=== PATIENT | female | born 1975 ===

== ENCOUNTER 2016-10-24 06:59 | Day surgery (SDC) | payer OTHER ==
[2016-09-23 21:34] VITALS: BMI 31.2
[2016-10-24] MEDS ORDERED: Propofol 10 mg/ml Inj (20 ML) ONE ×2 (08:13→08:14)
[2016-10-24] MEDS ORDERED: Lactated Ringer's 1,000 ML IV SCH (08:15)
--- NOTE | 2016-10-24 08:28 | CP.SDSHP ---
Same Day Surgery H & P - History Proposed Procedure: COLONSCOPY Pre-Op Diagnosis: SEE NOTES - Previous Medical/Surgical History Cardiac: Hypertension Endocrine/Metabolic: Diabetes Neuro: Backaches Pain: 4.Moderate Pain - Allergies Allergies: Allergies SEAFOOD Allergy (Intermediate, Uncoded 10/24/16 07:31) RASH - Physical Exam General Appearance: N Vital Signs: Vital Signs 10/24/16 07:10 Temperature 98.4 F Pulse Rate 80 Respiratory 20 Rate Blood Pressure 125/97 H O2 Sat by Pulse 99 Oximetry Mental Status: Alert & Oriented x3 Neuro: WNL Heart: Other Lungs: WNL GI: WNL - {Optional Preform as Required} Breast: WNL Abdomen: Other Rectal: Other Integument: WNL : WNL Ortho: Other ENT: WNL - Impression Pt. Evaluated Today:Candidate for Anesthesia & Procedure: Yes - Date & Time Time: 08:28 Short Stay Discharge - Short Stay Discharge Admitting Diagnosis/Reason for Visit: RECTAL BLEEDING Disposition: HOME/ ROUTINE
[2016-10-24 08:29] VITALS: O2SAT 100
[2016-10-24] MEDS ORDERED: Belladonna-Phenobarbital PO STA (08:29)
[2016-10-24] MEDS ORDERED: Lactated Ringer's 500 ML IV ONE ×2 (08:35)
[2016-10-24] MEDS ORDERED: Lidocaine Hydrochloride 5 ML INJ ONE (08:48)
[2016-10-24 09:01] VITALS: RESP 16
[2016-10-24 09:21] VITALS: TEMP 98
[2016-10-24 09:43] VITALS: BP 115/65; PULSE 75
== END 2016-10-24 09:40 | disposition home or self-care (01) ==
LOC: C.ENDO 06:59
PROVIDERS: ATTEND Specialist
DX: K60.2 Anal fissure, unspecified (principal); K52.9 Noninfective gastroenteritis and colitis, unspecified; I10 Essential (primary) hypertension; E11.9 Type 2 diabetes mellitus without complications; K64.8 Other hemorrhoids
CPT/HCPCS: 45380; 82948; 84703; 88305; J2704; J7120

== ENCOUNTER 2016-12-21 22:07 | Emergency (ER) | payer OTHER ==
[2016-12-21 22:08] VITALS: BMI 31.2
[2016-12-21] MEDS ORDERED: Sodium Chloride 0.9% 1,000 ML IV ONE (23:16)
--- NOTE | 2016-12-21 23:22 | C.PDOC ---
History Of Present Illness 41 year old patient, with a past medical history of diabetes, asthma, and gastritis, presents to the ED complaining of chest pain for the past 3 days. Patient also complains of a subjective fever, cough and sore throat. Patient denies vomiting, diarrhea, shortness of breath, palpitations, or nasal congestion. Time Seen by Provider: 12/21/16 23:12 Chief Complaint (Nursing): Chest Pain History Per: Patient History/Exam Limitations: no limitations Onset/Duration Of Symptoms: Days (3) Current Symptoms Are (Timing): Still Present Context: Other Severity: Moderate Pain Scale Rating Of: 4 Quality: "Pain" Exacerbating Factors: None Alleviating Factors: None Recent travel outside of the [place]: No Past Medical History Reviewed: Historical Data, Nursing Documentation, Vital Signs Vital Signs: Last Vital Signs Temp 99 F 12/21/16 22:36 Pulse 89 12/21/16 22:36 Resp 14 12/21/16 22:36 BP 112/76 12/21/16 22:36 Pulse Ox 97 12/22/16 00:08 - Medical History PMH: Anemia, Asthma, Back Problems, Gastritis Surgical History: Endoscopy - [facility] Procedures CLOSED ENDOSCOPIC BIOPSY OF LARGE INTESTINE (10/20/14) ESOPHAGOGASTRODUODENOSCOPY [EGD] W/CLOSED BIOPSY (02/09/15) Family History: States: Unknown Family Hx, Diabetes - Social History Hx Tobacco Use: No Hx Alcohol Use: Yes Hx Substance Use: No - Immunization History Hx Tetanus Toxoid Vaccination: No Hx Influenza Vaccination: No Hx Pneumococcal Vaccination: No Review Of Systems Except As Marked, All Systems Reviewed And Found Negative. Constitutional: Positive for: Fever ENT: Positive for: Throat Pain. Negative for: Nose Congestion Cardiovascular: Positive for: Chest Pain. Negative for: Palpitations Respiratory: Positive for: Cough. Negative for: Shortness of Breath Gastrointestinal: Negative for: Nausea, Vomiting Physical Exam - Physical Exam Appears: Non-toxic, No Acute Distress Skin: Warm, Dry Head: Atraumatic, Normacephalic Eye(s): bilateral: Normal Inspection Ear(s): Bilateral: Normal Nose: Normal Oral Mucosa: Moist Throat: Erythema, No Exudate Neck: Normal ROM, Supple Chest: Symmetrical Cardiovascular: Rhythm Regular Respiratory: Normal Breath Sounds, No Rales, No Rhonchi, No Wheezing Gastrointestinal/Abdominal: Soft, No Tenderness Back: Normal Inspection Extremity: Normal ROM Neurological/Psych: Oriented x3, Normal Motor, Normal Sensation Gait: Steady ED Course And Treatment - Laboratory Results Result Diagrams: 12/21/16 23:50 12/21/16 23:50 O2 Sat by Pulse Oximetry: 97 (room air) Pulse Ox Interpretation: Normal Medical Decision Making Medical Decision Making: atypical cp - r/o acs, vs viral syndrome, r/o pna, perc neg Plan: * Labs * EKG * Chest x-ray * Tylenol * IV fluids Progress: ekg sinus tach [address] t wave changes normal intervals 1240: pt reassessed. texting on phone, smiling ambulating around er. cxr neg as read by me. Disposition - Disposition Disposition: HOME/ ROUTINE Disposition Time: 00:41 Condition: STABLE Additional Instructions: please follow up with your doctor. return to er with worsening symptoms or concerns. Prescriptions: Naproxen 500 mg PO BID PRN #14 tab PRN Reason: Pain, Mild (1-3) Instructions: Chest Pain (ED), Acute Bronchitis (ED) - Clinical Impression Clinical Impression: Chest pain - Scribe Statement The provider has reviewed the documentation as recorded by the Scribe Mercedez Enciso Provider Attestation: All medical record entries made by the Scribe were at my direction and personally dictated by me. I have reviewed the chart and agree that the record accurately reflects my personal performance of the history, physical exam, medical decision making, and the department course for this patient. I have also personally directed, reviewed, and agree with the discharge instructions and disposition.
[2016-12-21 23:54] LABS: BASO % 0.2 % (0.0-2.0); EOS # 0.2 K/uL (0.0-0.7); HEMATOCRIT 32.5 % (34.0-47.0); LYMPH # 0.9 K/uL (1.0-4.3); LYMPH % 16.2 % (20.0-40.0); MEAN CORPUSCULAR HGB CONC 32.9 g/dL (33.0-37.0); MEAN PLATELET VOLUME 9.1 fL (7.2-11.7); MONO # 0.7 K/uL (0.0-0.8); MONO % 13.3 % (0.0-10.0); RED CELL DISTRIBUTION WIDTH 15.9 % (11.5-14.5); WHITE BLOOD COUNT 5.4 K/uL (4.8-10.8)
[2016-12-22 00:02] LABS: CHLORIDE 103 mmol/L (98-107); INR 1.1
[2016-12-22 00:03] LABS: POTASSIUM 3.5 mmol/L (3.6-5.2); SODIUM 137 mmol/L (132-148)
[2016-12-22 00:05] LABS: ALB/GLOB RATIO 1.1 (1.0-2.1); AST/SGOT 21 U/L (14-36); BILIRUBIN,TOTAL 0.4 mg/dL (0.2-1.3); BLOOD UREA NITROGEN 14 mg/dL (7-17); CARBON DIOXIDE 25 mmol/L (22-30); GFR AFRICAN-AMERICAN > 60; TOTAL PROTEIN 7.3 g/dL (6.3-8.3)
[2016-12-22 00:06] LABS: ALKALINE PHOSPHATASE 70 U/L (38-126); ALT/SGPT 15 U/L (9-52); CALCIUM 8.3 mg/dl (8.6-10.4); GLUCOSE,RANDOM 90 mg/dL (65-105)
[2016-12-22 01:12] VITALS: BP 108/74; RESP 18; TEMP 98.2; O2SAT 98
[2016-12-22 01:13] VITALS: PULSE 84
--- NOTE | 2016-12-22 08:40 | RAD ---
HISTORY: chest pain COMPARISON: Chest x-ray performed 07/25/16 TECHNIQUE: Chest PA and lateral FINDINGS: LUNGS: No focal consolidation. Please note that chest x-ray has limited sensitivity for the detection of pulmonary masses. PLEURA: No significant pleural effusion identified. No definite pneumothorax . CARDIOVASCULAR: The cardiomediastinal silhouette appears within normal limits of size. OSSEOUS STRUCTURES: No acute osseous abnormality identified. VISUALIZED UPPER ABDOMEN: Unremarkable. OTHER FINDINGS: None. IMPRESSION: No focal consolidation, significant pleural effusion, or definite pneumothorax identified.
--- NOTE | 2016-12-27 13:17 | CARD ---
APPROVED REPORT EKG Measurement Heart [id number] CO [id number] <Conclusion> Sinus tachycardia Otherwise normal ECG
== END 2016-12-22 01:20 | disposition home or self-care (01) ==
LOC: C.ER 22:07
DX: R07.9 Chest pain, unspecified (principal)
CPT/HCPCS: 71020; 80053; 84484; 85025; 85610; 85730; 87070; 87430; 87804; 93005; 96360; 99285; J7040

== ENCOUNTER 2017-04-15 02:16 | Emergency (ER) | payer OTHER ==
[2017-04-15 02:16] VITALS: BMI 31.2
[2017-04-15 02:29] VITALS: RESP 16; TEMP 98.9
--- NOTE | 2017-04-15 02:36 | C.PDOC ---
History Of Present Illness 41 year old female who presents to the ER with a complaint of right thumb pain after her friend accidentally sat on her hand earlier today. Patient reports she suffered an injury to the same thumb in September but never followed up with ortho for further evaluation. Denies weakness or numbness. Time Seen by Provider: 04/15/17 02:29 Chief Complaint (Nursing): Upper Extremity Problem/Injury History Per: Patient History/Exam Limitations: no limitations Onset/Duration Of Symptoms: Hrs Current Symptoms Are (Timing): Still Present Exacerbating Factor(s): Movement Recent travel outside of the [place]: No Past Medical History Reviewed: Historical Data, Nursing Documentation, Vital Signs Vital Signs: Last Vital Signs Temp 98.9 F 04/15/17 02:24 Pulse 89 04/15/17 03:56 Resp 16 04/15/17 03:56 BP 118/75 04/15/17 03:56 Pulse Ox 98 04/15/17 03:56 - Medical History PMH: Anemia, Asthma, Back Problems, Gastritis Surgical History: Endoscopy - [facility] Procedures CLOSED ENDOSCOPIC BIOPSY OF LARGE INTESTINE (10/20/14) ESOPHAGOGASTRODUODENOSCOPY [EGD] W/CLOSED BIOPSY (02/09/15) Family History: States: Unknown Family Hx, Diabetes - Social History Hx Tobacco Use: No Hx Alcohol Use: Yes Hx Substance Use: No - Immunization History Hx Tetanus Toxoid Vaccination: No Hx Influenza Vaccination: No Hx Pneumococcal Vaccination: No Review Of Systems Except As Marked, All Systems Reviewed And Found Negative. Musculoskeletal: Positive for: Hand Pain Neurological: Negative for: Weakness, Numbness Physical Exam - Physical Exam Appears: Non-toxic Skin: Normal Color, Warm, Dry Head: Atraumatic, Normacephalic Eye(s): bilateral: Normal Inspection, EOMI Neck: Normal ROM Chest: Symmetrical Extremity: Normal ROM, Tenderness (right 1st MCP), Capillary Refill (<2 sec), Swelling (mild to right 1st MCP) Pulses: Right Radial: Normal Neurological/Psych: Oriented x3, Normal Speech, Normal Motor, Normal Sensation ED Course And Treatment O2 Sat by Pulse Oximetry: 100 (Room air) Pulse Ox Interpretation: Normal - Other Rad Right Thumb X-ray X-Ray: Interpreted by Me, Viewed By Me Interpretation: No acute fractures or dislocations. Medical Decision Making Medical Decision Making: Impression: thumb injury Differential diagnosis includes but not limited to: fracture, dislocation, sprain Plan: * xray * ice pack * Motrin Progress: Xray reviewed by me showing no acute fracture, dislocation, subluxation Thumb spica splint applied by CP Patient advised to ice, rest, and take NSAID for pain Instruct to follow up with orthopedic if the pain persists. Disposition Counseled Patient/Family Regarding: Diagnosis, Need For Followup, Rx Given - Disposition Referrals: Gregory Toney MD [Staff Provider] - Disposition: HOME/ ROUTINE Disposition Time: 03:14 Condition: STABLE Additional Instructions: Your xray was normal, no fracture. Please apply ice to area 15 minutes three times a day. Take Motrin as needed for pain every 6 hours, with food to not upset stomach. Follow up with orthopedic if pain persists over one week. [place] radiografa fue normal, sin fractura. Por favor aplique hielo a la steffanie 15 minutos diana veces al da. José Motrin segn sea necesario para el dolor cada 6 horas, con alimentos para no malestar estomacal. Seguimiento con ortopedia si el dolor persiste tanna marianela semana. Prescriptions: Ibuprofen [Motrin] 600 mg PO Q8 #30 tab Instructions: Finger Sprain (ED) Forms: [facility] (Northern Irish) Print Language: BOTSWANAN - POA Present On Arrival: None - Clinical Impression Clinical Impression: Sprain of right thumb - Scribe Statement The provider has reviewed the documentation as recorded by the Scribe Carlos Will All medical record entries made by the Scribe were at my direction and personally dictated by me. I have reviewed the chart and agree that the record accurately reflects my personal performance of the history, physical exam, medical decision making, and the department course for this patient. I have also personally directed, reviewed, and agree with the discharge instructions and disposition.
[2017-04-15 03:57] VITALS: BP 118/75; PULSE 89
[2017-04-15 05:00] VITALS: O2SAT 100
--- NOTE | 2017-04-15 12:45 | RAD ---
PROCEDURE: Right Thumb radiographs. HISTORY: pain s.p injury COMPARISON: None. TECHNIQUE: AP radiograph of the right hand, as well as spot oblique and lateral images of thumb were obtained. FINDINGS: RIGHT THUMB: Normal right thumb, without fracture or focal lesion. Remainder of the right hand (as seen on the AP view) grossly unremarkable. JOINTS: Normal. SOFT TISSUES: Normal. OTHER FINDINGS: None. IMPRESSION: Normal right thumb radiographs.
== END 2017-04-15 03:56 | disposition home or self-care (01) ==
LOC: C.ER 02:16
DX: S63.601A Unspecified sprain of right thumb, initial encounter (principal); W50.0XXA Accidental hit or strike by another person, initial encounter

== ENCOUNTER 2018-01-02 17:35 | Emergency (ER) | payer MEDICAID, OTHER ==
[2018-01-02 17:36] VITALS: BMI 31.2
[2018-01-02 18:41] LABS: BASO % 0.2 % (0.0-2.0); EOS # 0.2 K/uL (0.0-0.7); EOS % 2.1 % (0.0-4.0); HEMOGLOBIN 10.5 g/dL (11.0-16.0); LYMPH # 2.3 K/uL (1.0-4.3); MEAN CELL VOLUME 80.2 fL (81.0-99.0); MEAN CORPUSCULAR HEMOGLOBIN 27.2 pg (27.0-31.0); MEAN CORPUSCULAR HGB CONC 33.9 g/dL (33.0-37.0); MEAN PLATELET VOLUME 9.6 fL (7.2-11.7); MONO # 0.6 K/uL (0.0-0.8); MONO % 7.9 % (0.0-10.0); NEUT # 4.9 K/uL (1.8-7.0); NEUT % 60.8 % (50.0-75.0); NRBC % 0.1 % (0.0-2.0); RBC 3.86 Mil/uL (3.80-5.20); RED CELL DISTRIBUTION WIDTH 16.2 % (11.5-14.5)
[2018-01-02 18:57] LABS: ALBUMIN 3.9 g/dL (3.5-5.0); ALT/SGPT 20 U/L (9-52); AST/SGOT 23 U/L (14-36); BLOOD UREA NITROGEN 16 mg/dL (7-17); CALCIUM 8.9 mg/dl (8.6-10.4); GFR AFRICAN-AMERICAN > 60; GFR NON-AFRICAN AMERICAN > 60
--- NOTE | 2018-01-02 19:18 | C.PDOC ---
History Of Present Illness 42 year old female presents to the ER with a complaint of a sharp left parasternal area chest pain since yesterday, associated with a nonproductive cough. Denies nausea, vomiting, or SOB. Chief Complaint (Nursing): Chest Pain History Per: Patient History/Exam Limitations: no limitations Onset/Duration Of Symptoms: Days Current Symptoms Are (Timing): Still Present Quality: Sharp Associated Symptoms: Other (Nonproductive cough). denies: Nausea, Dyspnea, Diaphoresis, Syncope Modifying Factors: None Exacerbating Factors: None Alleviating Factors: None Recent travel outside of the [place]: No Past Medical History Reviewed: Historical Data, Nursing Documentation, Vital Signs Vital Signs: Last Vital Signs Temp 98 F 01/02/18 19:58 Pulse 78 01/02/18 19:58 Resp 18 01/02/18 19:58 BP 116/72 01/02/18 19:58 Pulse Ox 98 01/02/18 19:58 - Medical History PMH: Anemia, Asthma, Back Problems, Gastritis Surgical History: Endoscopy - [facility] Procedures CLOSED ENDOSCOPIC BIOPSY OF LARGE INTESTINE (10/20/14) ESOPHAGOGASTRODUODENOSCOPY [EGD] W/CLOSED BIOPSY (02/09/15) Family History: States: Diabetes - Social History Hx Tobacco Use: No Hx Alcohol Use: Yes Hx Substance Use: No - Immunization History Hx Tetanus Toxoid Vaccination: No Hx Influenza Vaccination: Yes Hx Pneumococcal Vaccination: No Review Of Systems Constitutional: Negative for: Fever, Chills Respiratory: Negative for: Shortness of Breath Gastrointestinal: Negative for: Nausea, Vomiting Musculoskeletal: Positive for: Other (Chest wall pain) Physical Exam - Physical Exam Appears: Non-toxic Skin: Normal Color, Warm, Dry Head: Atraumatic, Normacephalic Eye(s): bilateral: Normal Inspection Oral Mucosa: Moist Chest: Symmetrical, Tenderness (Left parasternal) Cardiovascular: Rhythm Regular Respiratory: Normal Breath Sounds, No Rales, No Rhonchi, No Wheezing Gastrointestinal/Abdominal: Soft, No Tenderness Neurological/Psych: Oriented x3, Normal Speech ED Course And Treatment - Laboratory Results Result Diagrams: 01/02/18 18:27 01/02/18 18:27 ECG: Interpreted By Me, Viewed By Me ECG Rhythm: Sinus Rhythm ECG Interpretation: Normal, No Acute Changes Interpretation Of ECG: NSR, normal tracings. Rate From EC O2 Sat by Pulse Oximetry: 99 (Room air) Pulse Ox Interpretation: Normal - Radiology CXR: Interpreted by Me, Viewed By Me CXR Interpretation: Yes: No Acute Disease, Other (normal chest film). No: Infiltrates Progress Note: Blood work, CXR, and urinalysis ordered. Toradol administered. Disposition - Disposition Referrals: [facility] [Outside] Disposition: HOME/ ROUTINE Disposition Time: 19:55 Condition: STABLE Prescriptions: Naproxen 375 mg PO TIDPC #14 tablet Nitrofurantoin Macrocrystals [Macrobid] 100 mg PO BID #14 cap Instructions: Costochondritis (DC) Forms: Gen Discharge Inst [facility], [facility] (Khmer) Print Language: KINYARWANDA - Clinical Impression Clinical Impression: Chest wall pain - Scribe Statement The provider has reviewed the documentation as recorded by the Scribfrancis Will All medical record entries made by the Scribe were at my direction and personally dictated by me. I have reviewed the chart and agree that the record accurately reflects my personal performance of the history, physical exam, medical decision making, and the department course for this patient. I have also personally directed, reviewed, and agree with the discharge instructions and disposition.
[2018-01-02 19:22] LABS: SQUAMOUS EPITHIAL 7 /hpf (0-5); URINE BACTERIA RARE (<OCC); URINE BILIRUBIN NEGATIVE (NEGATIVE); URINE BLOOD 2+ (NEGATIVE); URINE CLARITY Hazy (Clear); URINE COLOR Yellow (YELLOW); URINE GLUCOSE (UA) NORMAL (Normal); URINE LEUKOCYTE ESTERASE NEG Leu/uL (Negative); URINE PROTEIN NEGATIVE (NEGATIVE); URINE UROBILINOGEN NORMAL mg/dL (0.2-1.0)
[2018-01-02 19:58] VITALS: BP 116/72; PULSE 78; RESP 18; TEMP 98
[2018-01-03 05:44] VITALS: O2SAT 99
--- NOTE | 2018-01-03 08:17 | RAD ---
Chest x-ray single frontal view History: Chest pain. Comparison: 12/21/2016 Findings: Mild venous congestion. Mild nodularity at the left lung base. Heart size within normal limits. Degenerative changes in the spine. Impression: Mild venous congestion. Mild nodularity at the left lung base.
--- NOTE | 2018-01-03 14:27 | CARD ---
APPROVED REPORT EKG Measurement Heart [id number] [place] [id number] [id number] <Conclusion> Normal sinus rhythm Normal ECG
== END 2018-01-02 19:58 | disposition home or self-care (01) ==
LOC: C.ER 17:35
DX: R07.89 Other chest pain (principal)
CPT/HCPCS: 71045; 80053; 81001; 84484; 84703; 85025; 85378; 87086; 87181; 93005; 96374; 99284; J1885